=== PATIENT | female | born 1980 | race American Indian/Alaskan Native ===

== ENCOUNTER 2022-01-21 14:13 | Emergency (ER) | payer SELFPAY ==
[2022-01-21 14:42] VITALS: BP 125/66
--- NOTE | 2022-01-21 16:21 | XRay Report ---
CHEST 2 VIEWS INDICATION / CLINICAL INFORMATION: chest injury. FINDINGS: SUPPORT DEVICES: None. HEART / MEDIASTINUM: No significant abnormality. LUNGS / PLEURA: No significant pulmonary or pleural abnormality. No pneumothorax. ADDITIONAL FINDINGS: No significant additional findings. IMPRESSION: 1. No acute findings. Signer Name: Danilo Trores MD Signed: 01/21/2022 4:17 PM Workstation Name: [id number]
--- NOTE | 2022-01-21 16:23 | XRay Report ---
Left ankle 3 views INDICATION: Left ankle pain following injury IMPRESSION: There is a spiral fracture identified involving the distal left fibula with extension int o the lateral malleolus. The medial malleolus appears intact. Prominent surrounding edema is noted. A nkle mortise remains symmetric this time. Signer Name: Danilo Torres MD Signed: 01/21/2022 4:18 PM Workstation Name: [email or web address]
[2022-01-21] MEDS ORDERED: ONDANSETRON 4 MG ODT TAB PO ONE (20:12)
[2022-01-21] MEDS ORDERED: MORPHINE 4 MG/1 ML INJ IM ONE (20:12)
--- NOTE | 2022-01-21 20:53 | Emergency Department Report ---
ED Fall HPI - General Chief Complaint: Extremity Injury, Lower Stated Complaint: SLIP AND FALL Time Seen by Provider: 01/21/22 19:36 Source: patient Mode of arrival: Wheelchair Limitations: Physical Limitation - History of Present Illness Initial Comments: 41-year-old female with no prior history presents with slip and fall accident. Patient reports she was walking on the grass that was wet when she accidentally slipped and had a legs fell under her. States she had a pop and has not been able to stand up after the incident. She denies LOC, she denies any injury to her head neck or back, no chest pain no shortness of breath, no numbness tingling or paresthesia of the extremity. She denies history of prior fracture. MD Complaint: fall -: hour(s) Fall From: standing Place Fall Occurred: home, work Prolonged Down Time?: no Symptoms Prior to Fall: none Location - Extremities: Left: Leg, Ankle, Foot Severity: severe Severity scale (0 -10): 10 Quality: sharp Associated Symptoms: denies, unable to walk. denies: headache, neck pain, numbness, chest paint, shortness of breath, abdominal pain - Related Data Previous Rx's Medication Instructions Recorded Last Taken Type HYDROcodone/APAP 5-325 [[place] 1 each PO Q6HR PRN #15 tablet 01/21/22 Unknown Rx 5/325] Ibuprofen [Motrin 800 MG tab] 800 mg PO Q8HR PRN #21 tablet 01/21/22 Unknown Rx Allergies Allergy/AdvReac Type Severity Reaction Status Date / Time No Known Allergies Allergy Verified 01/21/22 14:39 ED Review of Systems ROS: Stated complaint: SLIP AND FALL Other details as noted in HPI Constitutional: no symptoms reported. denies: see HPI Eyes: denies: eye pain ENT: denies: ear pain, throat pain Respiratory: no symptoms reported. denies: cough Cardiovascular: denies: chest pain, palpitations, dyspnea on exertion Endocrine: see HPI. denies: excessive sweating, intolerance to cold Gastrointestinal: denies: abdominal pain, nausea, vomiting Genitourinary: denies: urgency, dysuria Musculoskeletal: joint swelling, arthralgia. denies: back pain Skin: denies: lesions, change in color Neurological: denies: headache, weakness, numbness, paresthesias ED Past Medical Hx - Past Medical History Previous Medical History?: No - Surgical History Past Surgical History?: No - Medications Home Medications: Home Medications Medication Instructions Recorded Confirmed Last Taken Type HYDROcodone/APAP 5-325 [[place] 1 each PO Q6HR PRN #15 tablet 01/21/22 Unknown Rx 5/325] Ibuprofen [Motrin 800 MG tab] 800 mg PO Q8HR PRN #21 tablet 01/21/22 Unknown Rx ED Physical Exam - General Limitations: No Limitations General appearance: alert, in no apparent distress (Uncomfortable appearing) - Head Head exam: Present: atraumatic - Eye Eye exam: Present: normal appearance - ENT ENT exam: Present: normal exam, normal orophraynx - Neck Neck exam: Present: normal inspection. Absent: tenderness - Respiratory Respiratory exam: Present: normal lung sounds bilaterally. Absent: respiratory distress, chest wall tenderness - Cardiovascular Cardiovascular Exam: Present: regular rate, normal rhythm - GI/Abdominal GI/Abdominal exam: Present: soft. Absent: distended, tenderness - Extremities Exam Extremities exam: Present: tenderness, normal capillary refill, pedal edema, joint swelling. Absent: full ROM, calf tenderness - Expanded Lower Extremity Exam Left Hip exam: Present: normal inspection, full ROM Upper Leg exam: Present: normal inspection, full ROM Knee exam: Present: normal inspection, full ROM Lower Leg exam: Present: tenderness, swelling, deformity. Absent: full ROM Ankle exam: Present: tenderness, swelling, deformity. Absent: full ROM Foot/Toe exam: Present: tenderness, swelling Neuro vascular tendon exam: Present: no vascular compromise. Absent: pulse deficit, abnormal cap refill, motor deficit, sensory deficit, tendon deficit, extremity cold to touch, pallor, abnormal 2-point discrimination, decreased f ine/light touch, foot drop, peroneal nerve deficit, significant pain with passive ROM of distal joint Gait: Positive: unable to bear weight 1 - Swelling bony tenderness mild deformity. - Back Exam Back exam: Present: normal inspection ED Course Vital Signs 01/21/22 14:39 Temperature 98.9 F Pulse Rate 89 Respiratory 16 Rate Blood Pressure 125/66 [Left] O2 Sat by Pulse 100 Oximetry ED Medical Decision Making - Radiology Data Radiology results: report reviewed - Medical Decision Making 41-year-old female with no prior history presents with slip and fall accident. Patient reports she was walking on the grass that was wet when she accidentally slipped and had a legs fell under her. States she had a pop and has not been able to stand up after the incident. She denies LOC, she denies any injury to her head neck or back, no chest pain no shortness of breath, no numbness tingling or paresthesia of the extremity. She denies history of prior fracture. X-ray shows left fibular fracture The left lateral malleolus fractures. No acute dislocations, Peanuts dressed in the emergency department with improvement, patient is neurovascularly intact, with intact pulses sensation and cap refill, A Adal splint applied, crutches nonweightbearing, ice pain management orthopedic referral. Patient remained stable nontoxic-appearing, afebrile, ambulating steadily without assistance. Gone over ED findings with patient as well as plan for follow-up. Also discussed return precautions with patient, all questions and concerns addressed. Patient is stable to be discharged follow-up outpatient. Audio voice dictation device used, hence the chart might contain some dictation errors, mispronunciations, wrong spelling and wrong verbiage. Critical care attestation.: If time is entered above; I have spent that time in minutes in the direct care of this critically ill patient, excluding procedure time. ED Disposition Clinical Impression: Fall, Closed left ankle fracture, Fibula fracture Disposition: 01 HOME / SELF CARE / HOMELESS Is pt being admited?: No Does the pt Need Aspirin: No Condition: Stable Instructions: Fibular Fracture Rehab-SportsMed, Cast or Splint Care, Adult, [id number] Prescriptions: Ibuprofen [Motrin 800 MG tab] 800 mg PO Q8HR PRN #21 tablet PRN Reason: Pain , Severe (7-10) HYDROcodone/APAP 5-325 [[place] 5/325] 1 each PO Q6HR PRN #15 tablet PRN Reason: Pain Referrals: DIANN COBIAN MD [Staff Physician] - 3-5 Days Forms: Work/School Release Form(ED)
== END 2022-01-21 21:37 | disposition home or self-care (01) ==
LOC: ED 14:13
DX: S82.892A Other fracture of left lower leg, initial encounter for closed fracture (principal); S82.402A Unspecified fracture of shaft of left fibula, initial encounter for closed fracture; W19.XXXA Unspecified fall, initial encounter; Y93.89 Activity, other specified; Y92.89 Other specified places as the place of occurrence of the external cause; Y99.8 Other external cause status
CPT/HCPCS: 29515; 71046; 73610; 96372; 99283; J2270; J3490; Q0162

== ENCOUNTER 2022-01-27 09:46 | Emergency (ER) | payer OTHER ==
--- NOTE | 2022-01-27 10:15 | Emergency Department Report ---
ED Lower Extremity HPI - General Chief Complaint: Extremity Injury, Lower Stated Complaint: FOOT INJURY Time Seen by Provider: 01/27/22 10:10 Source: patient Mode of arrival: Ambulatory Limitations: No Limitations - History of Present Illness Initial Comments: A 41-year-old female who presents for increased leg pain and swelling status post tib-fib fracture 3 days ago. Decreased sensation tingling and swelling. Patient states she sustained tib-fib fracture status post fall and twist. Was treated by my Ortho. Pain today is 8/10. Tingles and numbness. Patient amatory via crutches. Been no new fall injury or trauma MD Complaint: leg injury - Related Data Previous Rx's Medication Instructions Recorded Last Taken Type HYDROcodone/APAP 5-325 [[place] 1 each PO Q6HR PRN #15 tablet 01/21/22 Unknown Rx 5/325] Ibuprofen [Motrin 800 MG tab] 800 mg PO Q8HR PRN #21 tablet 01/21/22 Unknown Rx HYDROcodone/APAP 5-325 [[place] 1 each PO Q6HR PRN #12 tablet 01/27/22 Unknown Rx 5-325 mg TAB] Allergies Allergy/AdvReac Type Severity Reaction Status Date / Time No Known Allergies Allergy Verified 01/27/22 10:06 ED Review of Systems ROS: Stated complaint: FOOT INJURY Other details as noted in HPI Constitutional: denies: chills, fever Eyes: denies: eye pain, eye discharge, vision change ENT: denies: ear pain, throat pain Respiratory: denies: cough, shortness of breath, wheezing Cardiovascular: denies: chest pain, palpitations Endocrine: no symptoms reported Gastrointestinal: denies: abdominal pain, nausea, diarrhea Genitourinary: denies: urgency, dysuria, discharge Musculoskeletal: other (Lower extremity pain) Skin: denies: rash, lesions Neurological: denies: headache, weakness, paresthesias Psychiatric: denies: anxiety, depression Hematological/Lymphatic: denies: easy bleeding, easy bruising ED Past Medical Hx - Medications Home Medications: Home Medications Medication Instructions Recorded Confirmed Last Taken Type HYDROcodone/APAP 5-325 [[place] 1 each PO Q6HR PRN #15 tablet 01/21/22 Unknown Rx 5/325] Ibuprofen [Motrin 800 MG tab] 800 mg PO Q8HR PRN #21 tablet 01/21/22 Unknown Rx HYDROcodone/APAP 5-325 [[place] 1 each PO Q6HR PRN #12 tablet 01/27/22 Unknown Rx 5-325 mg TAB] ED Physical Exam - General Limitations: No Limitations General appearance: alert, in no apparent distress - Head Head exam: Present: atraumatic, normocephalic - Eye Eye exam: Present: EOMI Pupils: Present: normal accommodation - ENT ENT exam: Present: mucous membranes moist - Neck Neck exam: Present: normal inspection, full ROM. Absent: tenderness - Respiratory Respiratory exam: Present: normal lung sounds bilaterally. Absent: respiratory distress, wheezes - Cardiovascular Cardiovascular Exam: Present: regular rate, normal rhythm, normal heart sounds. Absent: systolic murmur, diastolic murmur, rubs, gallop - GI/Abdominal GI/Abdominal exam: Present: soft, normal bowel sounds - Rectal Rectal exam: Present: deferred - Expanded Lower Extremity Exam Left Lower Leg exam: Present: tenderness, swelling (Splint intact distal pulses +1 moderate swelling). Absent: ecchymosis Ankle exam: Present: tenderness, swelling Foot/Toe exam: Present: full ROM, tenderness, swelling Neuro vascular tendon exam: Absent: pulse deficit, motor deficit, sensory deficit, tendon deficit Gait: Positive: unable to bear weight - Back Exam Back exam: Present: normal inspection (Splint and crutches) - Neurological Exam Neurological exam: Present: alert, oriented X3 - Psychiatric Psychiatric exam: Present: normal affect, normal mood - Skin Skin exam: Present: warm, dry, intact, normal color. Absent: rash ED Course Vital Signs 01/27/22 10:02 Temperature 97.7 F Pulse Rate 94 H Respiratory 18 Rate Blood Pressure 146/81 [Right] O2 Sat by Pulse 99 Oximetry ED Lower Extremity MDM - Radiology Data Radiology results: report reviewed, image reviewed eft leg-4 views INDICATION: Tib Fib fx pain swelling. COMPARISON: 01/21/2022 IMPRESSION: Progressive interval healing of the obliquely oriented fracture of the lateral malleolus at/above the tibiotalar joint space without significant displacement. Patient is in a cast with satisfactory alignment. Ankle mortise is symmetric and preserved. Signer Name: Luciano Barrientos MD Signed: 01/27/2022 10:42 AM Workstation Name: [id number] Transcribed By: GIOVANY Dictated By: Luciano Barrientos MD Electronically Authenticated By: Luciano Barrientos MD Signed Date/Time: 01/27/22 1042 DD/ 1037 TD/TT: UPLEX DOPPLER LOWER EXTREMITY VEINS, LEFT INDICATION: pain swelling LLE. TECHNIQUE: Duplex doppler imaging was performed through the veins of the left lower extremity using venous compression and other maneuvers. COMPARISON: No relevant prior imaging study available. FINDINGS: Left Common femoral vein: Negative. Left Superficial femoral vein: Negative. Left Popliteal vein: Negative. Left Calf veins: Negative. Additional findings: None.. IMPRESSION: 1. No sonographic evidence for DVT in the left lower extremity. Signer Name: Luciano Barrientos MD Signed: 01/27/2022 11:28 AM Workstation Name: [id number] Transcribed By: GIOVANY Dictated By: Luciano Barrientos MD Electronically Authenticated By: Luciano Barrientos MD Signed Date/Time: 01/27/22 1128 DD/ 1128 TD/TT: - Medical Decision Making X-ray noted no acute fracture healing failed fracture, Doppler normal no evidence of DVT plan no Flex wrap splint continue to follow-up with orthopedics as scheduled next week. Pain meds as needed for pain. Return to emergency department should symptoms worsen. Patient verbalized agreement understanding of discharge plan. Patient DC'd home in stable condition at this time. Critical care attestation.: If time is entered above; I have spent that time in minutes in the direct care of this critically ill patient, excluding procedure time. ED Disposition Clinical Impression: Lower extremity pain, left Disposition: 01 HOME / SELF CARE / HOMELESS Is pt being admited?: No Does the pt Need Aspirin: No Condition: Stable Instructions: Cast or Splint Care, Adult, Crutch Use, Adult Additional Instructions: Medications as prescribed, follow-up with orthopedic surgery as scheduled next week. Return to emergency department should symptoms worsen. Cast and splint care as directed. Prescriptions: HYDROcodone/APAP 5-325 [[place] 5-325 mg TAB] 1 each PO Q6HR PRN #12 tablet PRN Reason: Pain Referrals: PRIMARY CARE, [Primary Care Provider] - 3-5 Days Forms: Work/School Release Form(ED) Time of Disposition: 11:50
--- NOTE | 2022-01-27 10:46 | XRay Report ---
Left leg-4 views INDICATION: Tib Fib fx pain swelling. COMPARISON: 01/21/2022 IMPRESSION: Progressive interval healing of the obliquely oriented fracture of the lateral malleolus at/above the tibiotalar joint space without significant displacement. Patient is in a cast with sati sfactory alignment. Ankle mortise is symmetric and preserved. Signer Name: Luciano Barrientos MD Signed: 01/27/2022 10:42 AM Workstation Name: [id number]
[2022-01-27] MEDS ORDERED: traMADol 50 MG TAB PO ONE (11:11)
--- NOTE | 2022-01-27 11:32 | Vascular Lab Report ---
DUPLEX DOPPLER LOWER EXTREMITY VEINS, LEFT INDICATION: pain swelling LLE. TECHNIQUE: Duplex doppler imaging was performed through the veins of the left lower extremity using venous compr ession and other maneuvers. COMPARISON: No relevant prior imaging study available. FINDINGS: Left Common femoral vein: Negative. Left Superficial femoral vein: Negative. Left Popliteal vein: Negative. Left Calf veins: Negative. Additional findings: None.. IMPRESSION: 1. No sonographic evidence for DVT in the left lower extremity. Signer Name: Luciano Barrientos MD Signed: 01/27/2022 11:28 AM Workstation Name: [id number]
[2022-01-27 12:40] VITALS: BP 139/86
== END 2022-01-27 12:39 | disposition home or self-care (01) ==
LOC: ED 09:46
DX: M79.662 Pain in left lower leg (principal); Z79.899 Other long term (current) drug therapy
CPT/HCPCS: 99283; 99284